=== PATIENT | female | born 1955 | race Caucasian/White ===

== ENCOUNTER → 2017-06-07 | Outpatient (CLI) | payer OTHER | LOC: BMCIMAGING 10:45 | PROVIDERS: ATTEND Family Medicine | DX: Z13.820 Encounter for screening for osteoporosis (principal); M81.0 Age-related osteoporosis without current pathological fracture ==

== ENCOUNTER 2017-07-25 05:08 | Emergency (ER) | payer OTHER ==
[2017-07-25 05:17] VITALS: BP 121/64; PULSE 99; RESP 16; TEMP 97.9; O2SAT 92
--- NOTE | 2017-07-25 05:21 | EDPHY ---
H & P Stated Complaint: scratched by cat, left side of face Time Seen by Provider: 07/25/17 05:18 HPI/ROS: HPI The patient presents with a scratched by her cat which occurred just prior to arrival. The patient was sleeping, awoke when she felt her CT on her, and realized the CT head scratched or possibly bitten her left forehead. She realized she had a laceration and came to the emergency department to see if she required any sutures. She believes her last tetanus vaccine was within 10 years. She denies any trauma to her eye.. REVIEW OF SYSTEMS Constitutional: No fever, no chills. Skin: No rashes. Neurological: No headache. PMHx: Anal CA, hypothyroidism Soc Hx: Lives at home with family PHYSICAL General Appearance: Alert, no distress Head: There is a 8 cm longitudinal very superficial laceration of the left forehead, there is a 1 cm laceration of her left eyelid Eyes: Pupils equal and round no pallor or injection ENT, Mouth: Mucous membranes moist Respiratory: Breathing comfortably Neurological: A&O, moves all extremities Skin: Warm and dry, no rashes Psychiatric: Patient is oriented X 3, there is no agitation Source: Patient Exam Limitations: No limitations - Personal History Current Tetanus/Diphtheria Vaccine: Unsure - Medical/Surgical History Hx Asthma: No Hx Chronic Respiratory Disease: No Hx Diabetes: No Hx Cardiac Disease: No Hx Renal Disease: No Hx Cirrhosis: No Hx Alcoholism: No Hx HIV/AIDS: No Hx Splenectomy or Spleen Trauma: No Other PMH: anal CA, hypothyroidism - Social History Smoking Status: Never smoked Constitutional: Initial Vital Signs Temperature (C) 36.6 C 07/25/17 05:08 Heart Rate 99 07/25/17 05:08 Respiratory Rate 16 07/25/17 05:08 Blood Pressure 121/64 H 07/25/17 05:08 O2 Sat (%) 92 07/25/17 05:08 O2 Delivery Mode Room Air Allergies/Adverse Reactions: No Known Allergies Allergy (Verified 07/25/17 05:10) Home Medications: Medication Instructions Recorded ESTRADIOL 04/07/11 Lamictal 04/07/11 Progesterone 04/07/11 SYNTHROID 04/07/11 Amoxicillin/Clavulanate Pot 875 mg PO BID #14 tab 07/25/17 [Augmentin 875 MG TAB (*)] Medical Decision Making Differential Diagnosis: This is a 62-year-old female who presents after cat scratch to left forehead. She has a 8 cm very superficial laceration. Would not benefit from closure given high risk of infection and superficial nature. Wound edges are already well approximated. Plan for wound care here. Will apply antibiotic dressing. I will give her prescription for Augmentin as she is not 100% sure the cat scratch verses bit her. We discussed continued antibiotic ointment and keeping wound out of son. She is in agreement with the plan and will be discharged. Departure - Departure Disposition: Home, Routine, Self-Care Clinical Impression: Cat scratch of face Qualifiers: Encounter type: initial encounter Qualified Code(s): S00.81XA - Abrasion of other part of head, initial encounter Condition: Good Instructions: Animal Bite (ED) Additional Instructions: You should use antibiotic ointment on the wound twice a day and keep it covered. Once a begins to heal, you should apply sunscreen and avoid the sun as this can cause scarring. Referrals: NONE *PRIMARY CARE P,. [Primary Care Provider] - As per Instructions Prescriptions: Amoxicillin/Clavulanate Pot [Augmentin 875 MG TAB (*)] 875 mg PO BID #14 tab
== END 2017-07-25 05:29 | disposition home or self-care (01) ==
DX: S00.81XA Abrasion of other part of head, initial encounter (principal); Z85.048 Personal history of other malignant neoplasm of rectum, rectosigmoid junction, and anus; W55.03XA Scratched by cat, initial encounter

== ENCOUNTER → 2018-04-01 | Outpatient (CLI) | payer OTHER | LOC: BMCIMAGING 09:18 | PROVIDERS: ATTEND Emergency Medicine | DX: M25.512 Pain in left shoulder (principal); R93.8 Abnormal findings on diagnostic imaging of other specified body structures ==